=== PATIENT | male | born 1995 | race Two or more races ===

== ENCOUNTER 2018-04-07 15:54 | Emergency (ER) | payer MEDICAID ==
[~2018-04-07] VITALS: Ht 185.4 cm; Wt 96.2 kg
[2018-04-07 16:19] VITALS: BP 118/80
== END 2018-04-07 16:55 | disposition home or self-care (01) ==
LOC: ER 16:01
DX: B35.4 Tinea corporis (principal); F10.10 Alcohol abuse, uncomplicated; Y90.9 Presence of alcohol in blood, level not specified
CPT/HCPCS: 99282; A4606; Z7610

== ENCOUNTER 2018-04-14 10:38 | Emergency (ER) | payer MEDICAID ==
[~2018-04-14] VITALS: Ht 185.4 cm; Wt 81.6 kg
[2018-04-14 10:45] VITALS: BP 112/80
== END 2018-04-14 11:20 | disposition home or self-care (01) ==
LOC: ER 10:40
DX: B35.4 Tinea corporis (principal)
CPT/HCPCS: A4606; Z7610